=== PATIENT | female | born 1970 | race Hispanic/Latino ===

== ENCOUNTER 2016-09-06 12:32 | Observation (INO) | payer MEDICAID ==
[2016-09-06] VITALS (13 sets, daily range): BP systolic 121–146; BP diastolic 56–98; PULSE 58–75; RESP 14–26; O2SAT 97–100
[~2016-09-06] VITALS: Ht 157.5 cm; Wt 78.6 kg
[~2016-09-06 12:32] MED LIST: LEVO250T45 PO; PHEN-684 PO
[2016-09-06] MEDS ORDERED: 0.9% Sodium Chloride 1,000 ML IV ONE (14:41)
[2016-09-06] MEDS ORDERED: HYDROmorphone 0.5 mg/0.5 mL iSecure Syringe IVPUSH PRN (14:45)
[2016-09-06] MEDS ORDERED: Ondansetron 2 mg/mL 2 mL Inj IVPUSH PRN ×4 (14:45→22:05)
--- NOTE | 2016-09-06 15:02 | ED.REPORT ---
HPI-Abd Pain F 40 and Over Date of Service Sep 06, 2016 ED Provider: Te Awan DO Patient is a 46 year old female who presents to the ED complaining of RUQ abdominal pain onset 15 days ago. Her pain is constant and is worse with eating. Associated symptoms include R flank pain that radiates down her R leg. She denies fever, dysuria, hematuria, or any other symptoms. She has a history of gall stones in 2010 and states that this pain is similar. Her pain is so severe that she cannot sleep. Nursing Notes Stated Complaint: RIGHT SIDED ABDOMINAL PAIN Chief Complaint: Female Abdominal Pain Nursing Notes Reviewed: Yes Allergies: Coded Allergies: No Known Allergies (Unverified , 09/06/16) Scheduled Aspirin (Aspirin) 81 Mg Tablet 81 MG PO DAILY Levothyroxine (Levothyroxine) 75 Mcg Tablet 75 MCG PO DAILY Metformin (Metformin) 500 Mg Tablet 1,000 MG PO BID Scheduled PRN Ibuprofen (Advil) 200 Mg Capsule 400 MG PO TID PRN PRN For Pain General Time Seen by MD: 14:58 Chief Complaint Abdominal pain Hx Obtained From: Patient, Son Arrived By: Walk-in Sudden in Onset?: Yes Onset Occurred: More than a week ago... (2 weeks) Similar Sx Previous: Yes Risk Factors )( AAA Risk Stratification No Hypertension, No Prior AAA Risk factors reviewed Past Medical History Past Medical History Gall stones Reports: Diabetes mellitus Past Surgical History Reports: Smoking History Unknown if Ever Smoker Social History Other Social History: Good social support Ambulatory Status Independent Review of Systems Constitutional: Denies: Fever GI: Reports: Abdominal pain Female: Reports: Flank pain (R), Denies: Dysuria, Hematuria Musculoskeletal: Reports: Extremity pain (R leg ) Complete sys rev & neg: except as marked. Physical Exam Vital Signs Vital Signs (First) Date Time Temp Pulse Resp B/P Pulse Ox O2 Delivery O2 Flow Rate FiO2 09/06/16 12:45 36.8 73 15 146/87 99 Room Air Initial VS: Reviewed Head / Eyes: Atraumatic, Normocephalic Skin: Warm, Dry Neurologic: Alert, Oriented, Nonfocal Psychiatric: Mood/affect normal, Behavior normal, Normal thought content General/Constitutional: Awake, Alert, Well developed Appearance / Presentation: Positive: Obese Respiratory / Chest: No respiratory distress Cardiovascular: Heart rate NL, Regular rhythm, Heart sounds NL Abdomen: Soft, No guarding, No rebound Tenderness/Guarding/Rebound: Positive: Tender RUQ... (Mild), Tender epigastric (Mild ) Back: Atraumatic, No CVA tenderness Interpretation & Diagnostics US Abdominal: IMPRESSION: 1. Diffusely increased hepatic echotexture. This finding is most likely secondary to hepatic fatty infiltration although other hepatocellular disease may have a similar appearance. Recommend clinical correlation. 2. Cholelithiasis. No ultrasound findings to suggest acute cholecystitis. Dictated by: Irlanda Mixon M.D. on 09/06/2016 at 17:06 Approved by: Irlanda Mixon M.D. on 09/06/2016 at 17:08 Lab Results Interpretation Result Diagram: 09/06/16 1515 09/06/16 1515 Test 09/06/16 14:52 09/06/16 15:15 Urine Color Straw (YELLOW) Urine Appearance Hazy (CLEAR,HAZY) Urine pH 6.0 (5.0-8.0) Urine Specific [place] 1.005 (1.003-1.035) Urine Protein Negativemg/dL (NEG,TRACE) Urine Glucose (UA) 1000mg/dL (NEGATIVE) Urine Ketones Negativemg/dL (NEGATIVE) Urine Occult Blood Negative (NEGATIVE) Urine Nitrite Negative (NEGATIVE) Urine Bilirubin Negative (NEGATIVE) Urine Urobilinogen Normalmg/dL (NORMAL) Urine Leukocyte Esterase Negative (NEGATIVE) Urine RBC 0-2/hpf (0-2) Urine WBC 0-5/hpf (0-5) Urine Epithelial Cells Occasional/hpf (NONE-MOD) Urine Crystals None seen (NONE SEEN) Urine Bacteria Moderate/hpf (NONE-FEW) Urine Hyaline Casts None/lpf (NONE) Urine Granular Casts None seen (NONE SEEN) Urine Waxy Casts None seen (NONE SEEN) Urine Red Blood Cell Casts None seen (NONE SEEN) Urine White Blood Cell Casts None seen (NONE SEEN) Urine Mucus None seen (None Seen) Urine Trichomonas None seen (NONE SEEN) Urine Yeast None (NONE SEEN) Urinalysis Comment None Urine Culture Reflexed Indicated White Blood Count 9.9th/mm3 (3.8-10.1) Red Blood Count 5.13mil/mm3 (3.90-5.20) Hemoglobin 12.9g/dL (12.0-15.6) Hematocrit 39.2% (35.0-46.0) Mean Corpuscular Volume 76.4fL (81-100) Mean Corpuscular Hemoglobin 25.1pg (27.0-35.0) Mean Corpuscular Hemoglobin Concent 32.9% (32.0-37.0) Red Cell Distribution Width 15.7% (12.3-15.4) Platelet Count 366bil/L (150-400) Neutrophils (%) (Auto) 56.8% (40-74) Lymphocytes (%) (Auto) 36.6% (14-46) Monocytes (%) (Auto) 4.2% (4-12) Eosinophils (%) (Auto) 1.8% (0-5) Basophils (%) (Auto) 0.1% (0-3) Sodium Level 133mEq/L (134-144) Potassium Level 3.9mEq/L (3.5-5.2) Chloride Level 93mEq/L (97-108) Carbon Dioxide Level 23mmol/L (18-29) Blood Urea Nitrogen 5mg/dL (6-24) Creatinine 0.70mg/dL (0.57-1.00) Estimat Glomerular Filtration Rate 130mL/min (>59) Glucose Level 280mg/dL (60-99) Calcium Level 8.9mg/dL (8.5-10.1) Magnesium Level 1.6mg/dL (1.6-2.6) Total Bilirubin 0.3mg/dL (0.0-1.2) Aspartate Amino Transf (AST/SGOT) 56U/L (0-50) Alanine Aminotransferase (ALT/SGPT) 59U/L (0-32) Alkaline Phosphatase 91U/L (25-150) Total Protein 7.6g/dL (6.4-8.4) Albumin 4.5g/dL (3.4-5.0) Lipase 117U/L (13-60) Hold Tello Top Tube Received (Received) Re-Eval/Medical Decision Med Decision/Clinical Course Concern for symptomatically cholelithiasis and ongoing abdominal pain, LFTs are newly abnormal despite normal white count and no sonographic evidence of acute cholecystitis. Discussed with surgery who is willing to perform cholecystectomy. Patient will be admitted Re-Evaluation/Progress #1: Time of Eval: 16:17 )( Re-Eval Abdomen: Tenderness Re-Evaluation/Progress Note: Rechecked patient. Discussed options for surgery as outpatient or inpatient. Patient is requesting to be admitted for surgery. Re-Evaluation/Progress #2: Time of Eval: 17:03 )( Re-Eval Abdomen: Tenderness Re-Evaluation/Progress Note: Discussed plan to go to surgery. Patient understands and agrees with plan. All questions addressed at this time. Consultation : Referral / Consult Name: Tatiana Garcia MD Consulted With: Surgeon Call Returned at: 17:00 Solvent Plant Treater: Will see patient, Agrees with eval, Agrees with plan, Accepts admit Note: Discussed patient's case. Will see patient in the OR. Counseled Regarding: Diagnosis, Lab results, Need for admission Discharge & Departure Primary Impression: Symptomatic cholelithiasis Disposition: ADMITTED TO HOSPITAL Referrals: Elaine Talley (PCP) Scribe Attestation Portions of this note were transcribed by Elysia Martinez. I, Dr. Awan personally performed the history, physical exam and medical decision-making; I reviewed and confirmed the accuracy of the information in the transcribed note. Signed by: Elysia Martinez 09/06/2016, 1834 copies to: Elaine Talley Timothy S DO Sep 06, 2016 15:02 ELYSIA MARTINEZ Sep 06, 2016 15:10
[2016-09-06 15:09] LABS: APPEARANCE,URINE HAZY (CLEAR,HAZY); COLOR,URINE STRAW (YELLOW); OCCULT BLOOD,URINE NEGATIVE (NEGATIVE); UROBILINOGEN,URINE NORMAL (NORMAL)
[2016-09-06] MEDS ORDERED: Ketorolac 15 mg/mL Inj IVPUSH ONE (15:10)
[2016-09-06 15:26] LABS: BASOPHILS % (AUTO) 0.1 % (0-3); EOSINOPHILS % (AUTO) 1.8 % (0-5); MONOCYTES % (AUTO) 4.2 % (4-12); Mean Corpuscular Hemoglobin 25.1 pg (27.0-35.0); Mean Corpuscular Volume 76.4 fL (81-100); NEUTROPHILS % (AUTO) 56.8 % (40-74); Platelet Count 366 bil/L (150-400)
[2016-09-06 15:49] LABS: Magnesium 1.6 mg/dL (1.6-2.6)
[2016-09-06] MEDS ORDERED: Alum-Mag Hydrox-Simeth 30 mL Suspension PO PRN (17:05)
--- NOTE | 2016-09-06 17:09 | DRSVH ---
PROCEDURE: US ABDOMEN INDICATIONS: RUQ pain TECHNIQUE: Real-time scanning was performed of the abdominal and retroperitoneal organs, with image documentatio n. COMPARISON: [facility], US, ABDOMEN SONOGRAM, 04/21/2011, 14:35. FINDINGS: Liver length: 18.41 cm Gallbladder Wall Thickness: 8.60 mm CHD: 2.60 mm CBD: 5.10 mm Spleen length: 8.97 cm Right kidney length: 10.12 cm Left kidney length: 10.57 cm Aorta(Proximal): 2.28 cm Aorta(Mid): 1.50 cm Aorta(Distal): 1.50 cm RCIA: 8.90 mm LCIA: 9 mm Liver: Liver is normal in size and demonstrates diffusely increased echotexture. Gallbladder: There are multiple gallstones. No gallbladder wall thickening, pericholecystic fluid or sonographic Bhatt's sign. Biliary ducts: Intrahepatic bile ducts are non-dilated. Extrahepatic bile duct caliber is normal. Normal is 6-7 mm or less in diameter, or 10 mm or less post-cholecystectomy. Pancreas: Visualized portions of the pancreas are sonographically normal. Spleen: Spleen is normal in size and homogeneous in echotexture. Kidneys: Kidneys are normal in size and echotexture. No hydronephrosis or nephrolithiasis. No tawanda d masses. Aorta: Visualized aorta is normal in caliber at less than 3 cm. Iliacs: Proximal common iliac arteries are normal in caliber at less than 2.5 cm. IVC: Intrahepatic inferior vena cava is patent. Miscellaneous: No free abdominal fluid. IMPRESSION: 1. Diffusely increased hepatic echotexture. This finding is most likely secondary to hepatic fatty i nfiltration although other hepatocellular disease may have a similar appearance. Recommend clinical c orrelation. 2. Cholelithiasis. No ultrasound findings to suggest acute cholecystitis. Dictated by: Irlanda Mixon M.D. on 09/06/2016 at 17:06 Approved by: Irlanda Mixon M.D. on 09/06/2016 at 17:08
[2016-09-06] MEDS ORDERED: Ketamine 10 mg/mL 20 mL Inj ONE (17:37)
[2016-09-06] MEDS ORDERED: fentaNYL-PF 50 mCg/mL 2 mL Inj ONE (17:37)
[2016-09-06] MEDS ORDERED: Propofol 10,000 mCg/mL 20 mL Inj ONE (17:37)
[2016-09-06] MEDS ORDERED: Rocuronium 10 mg/mL 5 mL Inj ONE (17:37)
[2016-09-06] MEDS ORDERED: LEVO75TA4 PO (18:14)
[2016-09-06] MEDS ORDERED: METF500T4 PO (18:15)
[2016-09-06] MEDS ORDERED: ASPI-973 PO (18:16)
[2016-09-06] MEDS ORDERED: IBUP200C11 PO (18:16)
--- NOTE | 2016-09-06 18:56 | NUR ---
admission patient arrived to room 1026 at 1800hrs this evening. assumed care. admission completed.
[2016-09-06] MEDS ORDERED: Lactated Ringer's 1,000 ML IV ONE (19:09)
[2016-09-06] MEDS ORDERED: Bupivacaine-MPF 0.5% W/EPI 30 mL Inj INFILTRATE ONE (19:33)
--- NOTE | 2016-09-06 19:38 | CONS ---
[address] [address] CONSULTATION REPORT PATIENT: RODRIGUEZ QUIGLEY : 1970 MR#: [id number] ADMIT: 09/06/2016 JOB ID: [id number] DATE OF SERVICE: 09/06/2016 CHIEF COMPLAINT: This is a 46-year-old woman who presents with abdominal pain. This consultation is requested by Wilbert Awan DO. HISTORY OF PRESENT ILLNESS: This is a 46-year-old woman who presented to the emergency department earlier today with right upper quadrant pain. She reported that it began approximately two weeks ago and her pain has been constant for that period of time. It has been worse with eating, and foods that make it particularly bad include eggs, milk, and anything that is fatty. She associates right flank pain and pain radiating down her leg with it. She denies fever, nausea, and vomiting. She reports that she has had pain from gallstones approximately six years ago and her pain is similar. At the time of my examination she reported her pain being 4/10. PAST MEDICAL HISTORY: Diabetes. PAST SURGICAL HISTORY: . MEDICATIONS: Aspirin, levothyroxine, metformin. ALLERGIES: No known drug allergies. SOCIAL HISTORY: Denies tobacco or alcohol use. Multiple family members are present today. FAMILY HISTORY: No family history of gallbladder disease. Some family members have had difficultly with appendicoliths, she reports. REVIEW OF SYSTEMS: Eleven point review of systems is positive for abdominal pain, flank pain, extremity pain, and is otherwise negative. PHYSICAL EXAMINATION: Temperature 36.8, heart rate 73, blood pressure 146/87, respiratory rate of 15, saturation 99% on room air. General: Awake and alert, no acute distress. Head: Normocephalic. Neck: Supple. Cardiac: Regular rate and rhythm. Respiratory: Breathing easily on room air. Abdomen: Soft, tender in the right upper quadrant. No rebound or guarding. Nontender in the remaining quadrants. Extremities: No edema. Neurologic: No gross deficits. Psychiatric: Normal cognition and judgment. LABORATORY: White blood cell count 9.9, hematocrit 39, platelets 366. Comprehensive metabolic panel is within normal limits with the exception of sodium 133, chloride 93, glucose 280, AST 56, ALT 59, and her lipase is 117. IMAGING: Abdominal ultrasound images are personally reviewed and notable for cholelithiasis without gallbladder wall thickening, pericholecystic fluid, or sonographic Bhatt's sign. ASSESSMENT: A 46-year-old woman with ongoing moderate to severe biliary colic for approximately two weeks. She does not have cholecystitis based on ultrasound and clinical findings, however, she does have a mild elevation in her lipase. PLAN: I recommend laparoscopic cholecystectomy. Due to the severity and chronicity of the patient's symptoms, this will be performed this evening. Additionally, because her lipase is elevated, I will perform an intraoperative cholangiogram. I discussed the risks and benefits with the patient, including bleeding, infection, and injury to surrounding structures, as well as the risk of conversion to open. She understands and elects to proceed. NOELLE
[2016-09-06] MEDS ORDERED: Lactated Ringer's 1,000 ML IV SCH (19:51)
[2016-09-06] MEDS ORDERED: Lactated Ringer's 500 ML IV PRN (19:51)
--- NOTE | 2016-09-06 19:51 | PCM.HPANE ---
Patient Data Surgeon Admitting Provider:Tatiana Garcia MD Attending Provider:Tatiana Garcia MD Primary Care Physician:Elaine Talley Other Provider:Porsha Pearson Anesthesia Reason for Visit Symptomatic Cholelithiasis Ht/WT & BMI Height (Feet): 5 Height (Inches): 2.00 Weight (Kilograms): 78.600 Body Mass Index 31.89 Allergies Coded Allergies: No Known Allergies (Unverified , 09/06/16) Past Anesthesia History Anesthesia History: Denies:: Anesthesia Reactions Diabetes History Hx Diabetes?: Yes Type of Diabetes: Type II Current Bedside Blood Glucose: 164 MRSA MRSA: No Medications Home Meds Incl Beta Martin: No Reported Medications Aspirin 81 Mg [id number] Mg PO DAILY Ref 0 09/06/16 Ibuprofen (Advil)200 Mg [id number] Mg PO TID PRN For Pain 09/06/16 Metformin 500 Mg Tablet1,000 Mg PO BID Ref 0 09/06/16 Levothyroxine 75 Mcg [id number] Mcg PO DAILY Ref 0 09/06/16 History History of ENT Problems?: No HEENT History: Denies:: Abnormal Airway Difficult Intubation Hx of Heart Problems?: No Cardiovascular History: Denies:: Cardiac Surgery Chest Pain Congestive Heart Failure Edema Heart Murmur Hypertension Irregular Heartbeat Pacemaker Thrombophlebitis Hx of Respiratory Problem?: No Respiratory History: Denies:: Asthma COPD Chest Surgery Dyspnea Emphysema Hemoptysis Pneumonia Tuberculosis Neurological History: Denies:: Alzheimer's Disease CVA Dementia Dizziness Headaches Parkinson's Disease Seizures Hx of GI Problems?: Yes Gastrointestinal History: Positive for:: Heartburn Denies:: Diverticulitis Gastroesphageal Reflux Gastrointestinal Bleeding Hepatitis Hiatal Hernia Rectal Bleeding Hx of Problems?: No Genitourinary History: Denies:: HX of Hemodialysis Kidney Stones Urinary Tract Infection HX of Peritoneal Dialysis: No Female Hx: Denies:: Currently Endometriosis Pelvic Inflammatory Problems with Breasts? Hx Musculoskeletal Problems?: No Musculoskeletal History: Denies:: Back Injury Joint Replacement Musculoskeletal Trauma Psycho Social History: Positive for:: Hx Depression Denies:: Anxiety Bipolar Disorder Suicide Attempt Hx Surgeries?: Yes () Hx Any Other Health Problems?: Yes Other History: Positive for:: Hospitalization (Bronchitis, x4) Thyroid Disease Denies:: Cancer History Blood Transfusions: Positive for:: Accept Blood Products? Denies:: Blood Transfusions Hx Diabetes: YesBedside Blood Glucose: 164 Hx Alcohol Use: NoHx Substance Use: No Smoking Status: Unknown if Ever Smoker Have You Smoked inLast 12 mo: No Stop/Bang Treated for Sleep Apnea?: No Do You Have a CPAP Machine?: No S-Snoring: Do You Snore Loudly: No T-Tired: feel tired, fatigued: Yes O-Obsered: Observed not breath: No P-Blood Pressure: treated: No B- Body Mass Index > 35 kg/m2: No A- Age over 50: No N- Neck Large Circumference: Yes G- Gender Male: No ANAYA Total Score: 2 ANAYA Risk Assessment: Low Risk, <3 Yes Risk Assessment Category Category 1A: Patient has history of documented sleep apnea, and HAS NOT received any narcotic, sedative or anesthesia administration during this stay. Category 1B: Patient has history of documented sleep apnea, and HAS received any narcotic , sedative or anesthesia administration during this stay Category 2: Patient has SUSPECTED Obstructive Sleep Apnea, and HAS received any narcotic , sedative or anesthesia administration during this stay. Category 3: Patient has SUSPECTED Obstructive Sleep Apnea and HAS NOT received narcotic, sedative or anesthesia administration during this stay. Category 4: Outpatient in Procedural Areas with known sleep apnea or who screen positive for High Risk via the STOP/BANG questionnaire. Exam Exam Vital Signs Vital Signs Date Time Temp Pulse Resp B/P Pulse Ox O2 Delivery O2 Flow Rate FiO2 09/06/16 18:10 36.7 66 16 129/68 98 Room Air 09/06/16 17:34 36.7 67 16 138/98 100 Room Air 09/06/16 16:32 36.7 67 16 138/98 100 Room Air 09/06/16 12:45 36.8 73 15 146/87 99 Room Air General Appearance: Alert, Oriented X3, Cooperative, Mild Distress HEENT/AIRWAY: MP 2 Lungs: Clear to Auscultation, Normal Air Movement Heart: Exam Unremarkable, Regular Rate/Rhythm, No Murmurs/Rubs/Gallops Meds/Labs/Diagnostics Admission Meds Current Medications Bupivacaine HCl/ Epinephrine Bitart 60 ml 60 ml STK-MED ONCE INFILTRATE Last administered on 09/06/16t 19:33; Start 09/06/16 at 19:33; Stop 09/06/16 at 19:39 ; Status DC Lactated Ringer's (Lr) 1,000 ml @ ud STK-MED ONCE IV Last administered on 09/06 19:09; Start 09/06/16 at 19:09; Stop 09/06/16 at 19:39; Status DC Cefazolin Sodium (Ancef Inj) 2 gm STK-MED ONCE IVPUSH Last administered on 09/06 19:35; Start 09/06/16 at 19:35; Stop 09/06/16 at 19:39; Status DC Bedside Blood Glucose: 164 Labs Test 09/06/16 14:52 09/06/16 15:15 Urine Color Straw (YELLOW) Urine Appearance Hazy (CLEAR,HAZY) Urine pH 6.0 (5.0-8.0) Urine Specific [place] 1.005 (1.003-1.035) Urine Protein Negativemg/dL (NEG,TRACE) Urine Glucose (UA) 1000mg/dL (NEGATIVE) Urine Ketones Negativemg/dL (NEGATIVE) Urine Occult Blood Negative (NEGATIVE) Urine Nitrite Negative (NEGATIVE) Urine Bilirubin Negative (NEGATIVE) Urine Urobilinogen Normalmg/dL (NORMAL) Urine Leukocyte Esterase Negative (NEGATIVE) Urine RBC 0-2/hpf (0-2) Urine WBC 0-5/hpf (0-5) Urine Epithelial Cells Occasional/hpf (NONE-MOD) Urine Crystals None seen (NONE SEEN) Urine Bacteria Moderate/hpf (NONE-FEW) Urine Hyaline Casts None/lpf (NONE) Urine Granular Casts None seen (NONE SEEN) Urine Waxy Casts None seen (NONE SEEN) Urine Red Blood Cell Casts None seen (NONE SEEN) Urine White Blood Cell Casts None seen (NONE SEEN) Urine Mucus None seen (None Seen) Urine Trichomonas None seen (NONE SEEN) Urine Yeast None (NONE SEEN) Urinalysis Comment None Urine Culture Reflexed Indicated White Blood Count 9.9th/mm3 (3.8-10.1) Red Blood Count 5.13mil/mm3 (3.90-5.20) Hemoglobin 12.9g/dL (12.0-15.6) Hematocrit 39.2% (35.0-46.0) Mean Corpuscular Volume 76.4fL (81-100) Mean Corpuscular Hemoglobin 25.1pg (27.0-35.0) Mean Corpuscular Hemoglobin Concent 32.9% (32.0-37.0) Red Cell Distribution Width 15.7% (12.3-15.4) Platelet Count 366bil/L (150-400) Neutrophils (%) (Auto) 56.8% (40-74) Lymphocytes (%) (Auto) 36.6% (14-46) Monocytes (%) (Auto) 4.2% (4-12) Eosinophils (%) (Auto) 1.8% (0-5) Basophils (%) (Auto) 0.1% (0-3) Sodium Level 133mEq/L (134-144) Potassium Level 3.9mEq/L (3.5-5.2) Chloride Level 93mEq/L (97-108) Carbon Dioxide Level 23mmol/L (18-29) Blood Urea Nitrogen 5mg/dL (6-24) Creatinine 0.70mg/dL (0.57-1.00) Estimat Glomerular Filtration Rate 130mL/min (>59) Glucose Level 280mg/dL (60-99) Calcium Level 8.9mg/dL (8.5-10.1) Magnesium Level 1.6mg/dL (1.6-2.6) Total Bilirubin 0.3mg/dL (0.0-1.2) Aspartate Amino Transf (AST/SGOT) 56U/L (0-50) Alanine Aminotransferase (ALT/SGPT) 59U/L (0-32) Alkaline Phosphatase 91U/L (25-150) Total Protein 7.6g/dL (6.4-8.4) Albumin 4.5g/dL (3.4-5.0) Lipase 117U/L (13-60) Hold Tello Top Tube Received (Received) Plan Impression Patient chart reviewed, patient interviewed and anesthestic plan with risks, benefits, and alternatives discussed, and informed consent obtained. ASA Physical Status: ASA2 Mod Systemic Disease Anesthetic Plan: GA Bene/Risks/Altern/Consents: Yes HP Complete Prior to Induction: Yes Herson Harrison MD Sep 06, 2016 19:51
[2016-09-06] MEDS ORDERED: MetoCLOpramide 5 mg/mL 2 mL Inj IVPUSH PRN (19:55)
[2016-09-06] MEDS ORDERED: HYDROmorphone 1 mg/mL Inj IVPUSH PRN (19:55)
[2016-09-06] MEDS ORDERED: Dexamethasone 4 mg/mL Inj IVPUSH PRN (19:55)
[2016-09-06] MEDS ORDERED: EPHEDrine Sulfate 50 mg/mL Inj IVPUSH PRN (19:55)
[2016-09-06] MEDS ORDERED: Phenylephrine 10,000 mCg/mL Inj IVPUSH PRN (19:55)
[2016-09-06] MEDS ORDERED: fentaNYL-PF 50 mCg/mL 2 mL Inj IVPUSH PRN (19:55)
[2016-09-06] MEDS ORDERED: Insulin LISPRO 300 Unit/3 mL Inj ONE (19:57)
--- NOTE | 2016-09-06 20:41 | PCM.DISURG ---
Surgical Discharge Instruction Date of Service Sep 06, 2016 Dates of Hospitalization Date of Hospital Admission Sep 06, 2016 at 17:36 Providers Admitting Physician: Tatiana Garcia MD Primary Care Physician: Elaine Talley Attending Physician: Tatiana Garcia MD Discharge Diagnosis Discharge Diagnosis Cholecystitis Post Operative diagnosis Cholecystitis Diet Discharge Diet: Low fat Activity Discharge Activity-General: No restrictions Dressing and Incisional Care Dressing Care: Remove outer dressing after 24 hrs Hygiene: May shower Follow Up Plan Follow Up Plan F/U in Dr. Garcia's office in 2 weeks. Call your provider for: Fever, Chills, Shortness of breath, Increasing abdominal pain, Nausea, Vomiting, Increasing wound pain, Discharge @ incision, pus discharge Tatiana Garcia MD Sep 06, 2016 20:41
[2016-09-06] MEDS ORDERED: OXYC5CAP4 PO (20:42)
--- NOTE | 2016-09-06 20:59 | PCM.SURGOP ---
Surgical Operative Report Date of Service: Sep 06, 2016 Pre Operative Diagnosis Biliary colic Post Operative Diagnosis Acute cholecystitis Procedure: Laparoscopic cholecystectomy with intraoperative cholangiogram Surgeon and Tool Maker: Surgeon: Tatiana Garcia M.D. Assistants: Clark West PA-C; Angelique Tarango, MS3 Indication for Procedure This is a 46-year-old woman who presented with 2 weeks of right upper quadrant pain exacerbated with greasy foods. Ultrasound demonstrated cholelithiasis. She also had a mildly elevated lipase. Due to her ongoing pain cholecystectomy was indicated. Findings: 1. The gallbladder was encased in adhesions and edema, consistent with acute cholecystitis. There were two 1 cm gallstones within it, likely contributing to the pathologic process. 2. Intraoperative cholangiogram was normal with the exception of filling defects consistent with sludge that was flushed through into the duodenum. Procedure Details The patient was brought to the operating room and placed in supine position. General endotracheal anesthesia was smoothly induced. Antibiotics were infused. A warming blanket and SCDs were placed. A foot board was placed. The operative field was prepped and draped in sterile fashion. A pause was performed to confirm the correct patient, procedure, site, and side. A transverse 10 mm incision was made just below the umbilicus. The abdomen was entered under direct vision using a René port. Three additional 5 mm ports were placed in the epigastrium and right upper quadrant. The gallbladder was identified and lifted cephalad. There were moderate adhesions due to cholecystitis, and substantial pericholecystic edema. Dissection then proceeded to identify the cystic duct, cystic artery, and to fully expose the cystic plate. The cystic artery was encased in adhesions and therefore was taken with electrocautery. When there was only one more structure entering the gallbladder on this view consistent with the cystic duct, a clip was placed on the gallbladder side of it. A ductotomy was made and a cholangiocatheter was inserted. A cholangiogram was performed and the cystic duct was patent with normal anatomy of the common hepatic duct, common bile duct, and right and left hepatic ducts, as noted above. Initially on the cholangiogram there were filling defects within the common bile duct with the appearance of sludge; these were flushed through into the duodenum as contrast filled the common bile duct. There were no filling defects at the completion of the cholangiogram. The cholangiocatheter was then removed, two clips were placed on the cystic duct and it was divided. The cystic artery was clipped on both the gallbladder side and the patient's side and divided. The gallbladder was then removed from its bed on the liver with electrocautery. Prior to completely removing the gallbladder, a final look was taken at the stump of the cystic artery and cystic duct, and there was no bleeding or bile leak. The gallbladder was then fully removed from the liver and placed in an EndoCatch bag and removed. The three 5 mm ports were removed under direct vision, the 10 mm mid abdominal port was removed, and an interrupted 0 PDS was used to close the fascia laparoscopically. There was no fascial defect at the end of the case. 0.5% Marcaine with epinephrine was infused at all port sites for postoperative analgesia. The skin was closed with subcuticular 4-0 Monocryl. Sterile dressings were placed. Sponge, instrument, and needle counts were correct at the end of the procedure. The patient was awakened from general anesthesia and taken to the postoperative care unit in good condition. Complications There were no periprocedural complications identified. Surgical Specimen Removed: Yes Specimen sent to Pathology: Yes Surgical Specimen description: Gallbladder Anesthetic Plan: GA Grafts, Implants: None Output, Estimated Blood Loss: 5 (ml) Blood Administration during bhakta: No Tatiana Garcia MD Sep 06, 2016 20:59
--- NOTE | 2016-09-06 21:03 | DRSVH ---
PROCEDURE: X-RAY OPERATIVE CHOLANGIOGRAM ([id number]) INDICATIONS: CHOLECYSTITIS COMPARISON: [facility], US, US ABDOMEN, 09/06/2016, 15:34. FINDINGS: Biliary ducts: The surgeon injected contrast into the biliary ducts after cannulation of the cystic duct stump. Visualized intra- and extrahepatic bile ducts are normal in caliber, without strictures. No intraluminal filling defects to suggest retained ductal stones or sludge. No evidence for iatro genic ductal injury. Duodenum: Contrast flows promptly through the sphincter of Oddi into the duodenum, which appears nor mal in caliber. IMPRESSION: Normal intraoperative cholangiogram. Dictated by: Irlanda Mixon M.D. on 09/06/2016 at 21:01 Approved by: Irlanda Mixon M.D. on 09/06/2016 at 21:02
[2016-09-06] MEDS: 0.9% Sodium Chloride 1,000 ML IV SCH (22:26)
[2016-09-06] MEDS ORDERED: Ketorolac 15 mg/mL Inj ONE (22:30)
[2016-09-07] MEDS: oxyCODONE-Acetamin 5-325 mg Tablet PO PRN ×3 (00:37→14:04)
--- NOTE | 2016-09-07 02:15 | NUR ---
POST OP: 2200 Pt. arrived to [facility] from PACU via stretcher, drowsy but responsive. Transferred to bed with slider board. All VSS taken upon arrival, VSS. Was given 15 mg of IV Toradol for c/o pain. Later on given 2 Percocet for pain rated at 8/10. Pt. was able to sleep for a while, then got up and ambulated on the hallway. Drinking fluids, and chicken noodle soup, tolerating well. Family at her side. Pt. was able to void without difficulty. A & O, VSS. On going care.
[2016-09-07 02:26] VITALS: BP 143/85; PULSE 95; RESP 20; O2SAT 95
[2016-09-07] MEDS: Insulin Human REGular 300 Unit/3 mL Inj SUBQ SCH ×3 (02:30→14:10)
[2016-09-07] MEDS: 0.9% Sodium Chloride 1,000 ML IV SCH ×2 (03:04→13:04)
[2016-09-07 05:17] VITALS: BP 118/62; PULSE 90; RESP 16; O2SAT 95
[2016-09-07 10:12] VITALS: BP 130/76; PULSE 56; O2SAT 97
--- NOTE | 2016-09-07 14:33 | PCM.PNSURG ---
Subjective Visit Information: Reason for Visit Symptomatic Cholelithiasis Surgery/Surgery Date GIORGIO VILLAE 09/06/16 Post-Op Day # 1 Date of Admission: Sep 06, 2016 at 17:36 Hospital Day # Subjective: Eating solid foods with no nausea or vomiting. Pain well controlled with oral analgesic. Ambulating in the hallway without assistance. Postop General: No Complaints Gastrointestinal: Good Appetite, Tolerating Oral Feedings, No N/V Pain Management: PO Postop Activity: Ambulating Independently Objective Vital Sign- Last 8 Hours Date Time Temp Pulse Resp B/P Pulse Ox O2 Delivery O2 Flow Rate FiO2 09/07/16 10:12 36.5 56 130/76 97 Room Air Intake and Output- Last 8 Hour 09/07/16 Cumulative From/Thru 06:59 09/06/16 12:45 - 09/07/16 05:30 Intake Total 970 ml 2170 ml Output Total 1000 ml 1005 ml Balance -30 ml 1165 ml Intake Oral 720 ml 720 ml IV Total 250 ml 1450 ml Output Urine Total 1000 ml 1000 ml Estimated Blood Loss 5 ml # Bowel Movements 0 0 General: Alert, Cooperative, No Acute Distress, Anicteric Lungs: Clear to Auscultation Heart: Regular Rate/Rhythm Abdomen: Soft, Non-tender, Non-distended SURGICAL WOUND : Wound General Appearence: Steri Strips, Sutures, No Erythema, No Discharge, Wound under dressing Neuro: Normal Speech Catheters: None Result Diagram: 09/06/16 1515 09/06/16 1515 Assessment & Plan Impression Primary diagnosis: 1. Acute cholecystitis. POD #1, stable for discharge. 2. Type II diabetes mellitus Problems: Plan The patient will be discharged to home. She will follow-up in the office with Dr. Garcia in 2 weeks. Pain Management: Oral analgesic VTE Prophylaxis: SCDs Resuscitation Status: CPR: Attempt Resuscitation copies to: Elaine Talley Fred H PA-C Sep 07, 2016 14:33
--- NOTE | 2016-09-07 14:37 | PCM.DC.SUR ---
Discharge Summary Date of Service: Sep 07, 2016 Date of Hospital Admission: Sep 06, 2016 at 17:36 Date of Operation(s): 09/06/2016 Date of Discharge: 09/07/2016 Diagnosis at Time of Discharge 1. Acute cholecystitis 2. Type II diabetes mellitus Problems: Operation Laparoscopic cholecystectomy with intraoperative cholangiogram Brief History and Physical: This is a 46-year-old woman who presented with 2 weeks of right upper quadrant pain exacerbated with greasy foods. Ultrasound demonstrated cholelithiasis. She also had a mildly elevated lipase. Due to her ongoing pain cholecystectomy was indicated. Consultants: None Hospital Course: The patient was admitted and underwent the above-mentioned operation without complication. She was stable for discharge the following day. Pathology: Pending Disposition: The patient was discharged to home on her first postsurgical day. Follow-up Plan: She will follow-up in the office with Dr. Garcia in 2 weeks. Aspirin (Aspirin) 81 Mg Tablet 81 MG PO DAILY (Reported) Ibuprofen (Advil) 200 Mg Capsule 400 MG PO TID PRN PRN For Pain (Reported) Levothyroxine (Levothyroxine) 75 Mcg Tablet 75 MCG PO DAILY (Reported) Metformin (Metformin) 500 Mg Tablet 1,000 MG PO BID (Reported) oxyCODONE (oxyCODONE) 5 Mg Capsule 5-10 MG PO Q4H PRN PRN For Pain copies to: Elaine Talley Fred H PA-C Sep 07, 2016 14:37
--- NOTE | 2016-09-07 14:46 | NUR ---
Social Work Discharge: Order for discharge acknowledged. Patient is a 46 year old female admitted on 09/06/16 for symptomatic cholelithiasis. Patient Patient resides in [place] with who to assist with care needs at home. Patient states pharmacy of choice as [facility]. Patient has no previous HHC, SNF, or DME history. Patient states PCP as Elaine TANG Aas. Patient states daughter and to assist with care needs at home. Patient denied any discharge needs at this time. Patient states being self pay and having no insurance coverage. RCA assessed patient and patient eligible for [place] medicaid. Tashia papaerowrk provided to patient. No other needs. SW to follow. PLAN: Home with family support and care. No needs. RCA assessed patient. Tashia application provided. Rom KNOTT
--- NOTE | 2016-09-07 16:24 | NUR ---
Discharge Patient discharged home with family. A&O x3, moving all extremities without difficulty, pain well controlled, IV d'cd intact. stable and steady gait when ambulating. Instructions for medications, home care and follow up care given. Hard copy script for pain medication given to family prior to discharge. Offered perinatal instructor services for teaching, patient denied. Family member translated. Patient voiced understanding. Walked off unit with all personal belongings.
--- NOTE | 2016-09-08 10:44 | PCM.ANEP2 ---
Post Anesthesia Evaluation ASA/CMS Post Anesthesia VS in Patient's Normal Range?: Yes Resp Stable; Airway Patent?: Yes CV Function & Hydration Stable: Yes Mental Status Recovered?: Yes Pain control Satisfactory?: Yes N/V Control Satisfactory?: Yes Herson Harrison MD Sep 08, 2016 10:44
--- NOTE | 2016-09-08 10:44 | PCM.ANEP1 ---
Post Anesthesia Phase 1 PACU Phase 1 Assessment Date of Service: Sep 06, 2016 Anesthetic Administered: GA Level of Alertness: Sleepy, easy to arouse JACKSON's with Equal Strength: Yes Pain: No Pain Scale Score: 8 Oxygen Delivery: Simple Mask Lungs: Clear to Auscultation Dermatome Level: Full Sensation Herson Harrison MD Sep 08, 2016 10:44
--- NOTE | 2016-09-11 15:26 | PATH ---
SURGICAL PATHOLOGY Attending Physician:Tatiana Garcia MD CASE STATUS: Signed Out PATIENT NAME: RODRIGUEZ QUIGLEY PID: [id number] : 1970 DATE COLLECTED:09/06/2016 00:00 SPECIMEN: Gallbladder CLINICAL HISTORY: GALLBLADDER + CONTENTS FINAL DIAGNOSIS: 1.GALLBLADDER PLUS CONTENTS: CHOLELITHIASIS. NO EVIDENCE OF MALIGNANCY. ICD10 CODE K80.7 GROSS DESCRIPTION: The specimen is received in formalin, labeled with the patient's name, sublabeled as gallbladder and consists of an opened gallbladder (length-6.5 cm, diameter-2.7 cm) with a patent cystic duct. No lymph nodes are identified. The serosa is green smooth and shiny. The lumen contains to dark green multifaceted partially rough solid hard calculi (each approximately 1.5 x 1.2 x 0.8 cm) with mario crystalline cut surfaces. The mucosa is green flat and gritty. The wall is up to 0.1 cm thick. No nodules, masses or lesions are identified. Section code: (A) gallbladder, payroll representative. 09/09/16 MICRO DESCRIPTION: See diagnosis. ICD-9 CODES: CPT CODES: 1: 38622 Electronically Signed Out Carissa Turk MD [facility] Pathology [facility] [address], [place] [address] Technical component performed at [facility], [facility] [address], [place], [address]
== END 2016-09-07 16:23 | disposition home or self-care (01) ==
LOC: SED 12:32 → OSC 17:36
PROVIDERS: ADMIT Surgery; ATTEND Surgery
DX: K80.00 Calculus of gallbladder with acute cholecystitis without obstruction (principal); E11.9 Type 2 diabetes mellitus without complications; Z79.84 Long term (current) use of oral hypoglycemic drugs; Z87.442 Personal history of urinary calculi; Z79.82 Long term (current) use of aspirin
CPT/HCPCS: 36415; 47563; 74300; 76700; 80053; 81000; 81025; 82948; 83036; 83690; 83735; 85025; 87086; 96360; 99285; G0378; J0690; J1815; J1885; J2250; J2405; J2765; J3010; J7030; J7120; Q9967